=== PATIENT | female | born 1960 | race African-American/Black ===

== ENCOUNTER 2021-06-25 17:01 | Emergency (ER) | payer OTHER ==
[~2021-06-25] VITALS: Ht 162.6 cm; Wt 80.0 kg
[2021-06-25 17:22] VITALS: BP 140/69
[2021-06-25] MEDS ORDERED: LIDOCAINE 2% Multi-Dose 20 ML VIAL. IJ ONE (18:00)
[2021-06-25] MEDS ORDERED: DIPH,PERTUSS(ACELL),TET VAC/PF 0.5 ML SYRINGE. VAX IM ONE (18:00)
[2021-06-25] MEDS ORDERED: HYDROcodone/APAP 5/325MG 1 TAB TABLET PO ONE (18:00)
--- NOTE | 2021-06-25 18:14 | PHYS DOC ---
Past Medical History Past Surgical History: No Surgical History Smoking Status: Current Every Day Smoker Alcohol Use: None General Adult EDM: Chief Complaint: LACERATION/AVULSION HPI: HPI: Patient is a 61-year-old female presents emergency department via EMS reporting she was opening up a package with a steak knife when it slipped and she incidentally suffered a small laceration to her left pointer finger. Patient denies loss of consciousness, denies loss of sensation of lacerated finger, reports minimal blood loss as she immediately wrapped it in a bandage and called 911 for transport to the emergency department. Patient reports her last tetanus immunization was greater than 5 years ago. Reports a history of anxiety and depression, takes Abilify, gabapentin, fluoxetine, and Lamictal. Patient denies allergies to medications. Reports a 9 out of 10 pain to her fingertip. Denies other physical complaints or physical concerns. Review of Systems: Review of Systems: 14 body systems of review of systems have been reviewed. See HPI for pertinent positives and negative responses, otherwise all other systems are negative, nonpertinent or noncontributory. Constitutional: Negative except as outlined in HPI above. Skin: Negative except as outlined in HPI above. Eyes: Negative except as outlined in HPI above. HENT: Negative except as outlined in HPI above. Respiratory: Negative except as outlined in HPI above. Cardiovascular: Negative except as outlined in HPI above. GI: Negative except as outlined in HPI above. : Negative except as outlined in HPI above. Musculoskeletal: Negative except as outlined in HPI above. Integument: Negative except as outlined in HPI above. Neurologic: Negative except as outlined in HPI above. Endocrine: Negative except as outlined in HPI above. Lymphatic: Negative except as outlined in HPI above. Psychiatric: Negative except as outlined in HPI above. Heart Score: C/O Chest Pain: No Risk Factors: Risk Factors: DM, Current or recent (<one month) smoker, HTN, HLP, family history of CAD, obesity. Risk Scores: Score 0 - 3: 2.5% MACE over next 6 weeks - Discharge Home Score 4 - 6: 20.3% MACE over next 6 weeks - Admit for Clinical Observation Score 7 - 10: 72.7% MACE over next 6 weeks - Early Invasive Strategies Current Medications: Current Medications Medications (Trade) Dose Ordered Sig/Syed Start Time Stop Time Status Last Admin Dose Admin Acetaminophen/ Hydrocodone Bitart (Lortab 5/325) 1 tab 1X ONCE 06/25/21 18:00 06/25/21 18:01 DC 06/25/21 17:51 1 TAB Diphtheria/ Tetanus/Acell Pertussis (ADACEL TDap SYRINGE) 0.5 ml ONCE ONCE 06/25/21 18:00 06/25/21 18:01 DC 06/25/21 17:56 0.5 ML Lidocaine HCl (Lidocaine 2% 20ml Vial) 20 ml 1X ONCE 06/25/21 18:00 06/25/21 18:01 DC 06/25/21 17:50 20 ML Allergies: Allergies: Allergies Coded Allergies Type Severity Reaction Last Updated Verified No Known Drug Allergies 06/25/21 No Physical Exam: PE: Constitutional: Well developed, well nourished, no acute distress, non-toxic appearance. 61-year-old female in no apparent distress. HENT: Normocephalic, atraumatic. Eyes: Conjunctiva normal, no discharge. Neck: Normal range of motion, no stridor. Cardiovascular: No cyanosis appreciated, distal cap refill less than 2 seconds. Lungs & Thorax: Patient is in no respiratory distress, no audible adventitious lung sounds appreciated. Abdomen: Nontender, no abnormalities noted. Skin: Warm, dry, no erythema, no rash. See extremity note for focused skin examination for Back: No tenderness, no deformities. Extremities: No tenderness, no cyanosis, no clubbing, ROM intact, no edema. Except for left index finger, palmar skin surface distal phalanx has 4 cm laceration with adipose tissue exposed, full flexion extension of index finger joints, distal cap refill less than 2 seconds, no loss of sensation distal to laceration. Bleeding controlled with bandage. Neurologic: Alert and oriented X 3, normal motor function, normal sensory function, no focal deficits noted. Psychologic: Affect normal, judgement normal, mood normal. Current Patient Data: Vital Signs: Vital Signs Date Time Temp Pulse Resp B/P (MAP) Pulse Ox O2 Delivery O2 Flow Rate FiO2 06/25/21 17:22 97.2 75 18 140/69 (92) 97 Room Air 97.2 EKG: EKG: [] Radiology/Procedures: Radiology/Procedures: [] Course & Med Decision Making: Course & Med Decision Making Pertinent Labs and Imaging studies reviewed. (See chart for details) 51-year-old female, vital signs reviewed, presents to the emergency department concerning laceration of her left index finger. Patient denies homicidal or suicidal ideation, physical presentation is consistent with patient's explanation of events. See laceration repair note. Patient's immunization status brought up-to-date today in the emergency department with Adacel/Tdap. Discussed with patient home suture care, sutures out in 7 to 10 days at primary care, reviewed at length with patient signs and symptoms of infectious process, return to ER precautions and concerns, patient gave verbal understanding of and is amenable to ED discharge planning. Discussed with the patient all findings and diagnostic testing as well as the need to follow-up with their primary care provider for further evaluation and treatment or return to the ED if any new or worsening symptoms. Strict return precautions were also discussed at length, the patient voiced understanding and agreement with the discharge planning. The patient was nontoxic in appearance, in no apparent distress, and hemodynamically stable at the time of disposition. Dragon Disclaimer: Dragon Disclaimer: This electronic medical record was generated, in whole or in part, using a voice recognition dictation system. Laceration Repair Lac Repair Indication: Laceration left index finger Time: 1814 Confirmed: Patient, procedure, side, and site correct. Consent: Patient, has given verbal consent. Description/repair Procedure: The patient was placed in the appropriate position and anesthesia around the laceration was achieved with 6 cc 2% lidocaine without epinephrine digital block. The area was then cleansed with chlorhexidine scrub brush, irrigated with 500 cc normal saline. The laceration was explored for foreign bodies, there are no foreign bodies. The laceration was closed with 3 interrupted sutures using 5-0 nylon, the wound area was then dressed with bacitracin and Band-Aid by ED nursing staff. Complexity: Single layer. Post procedure exam: Circulation, motor, sensory examination intact, bleeding controlled. Total repaired wound length: 0.4 cm. Other Items: There were no other items The patient tolerated the procedure well. Complications: No complications. Performed by: Onel, Rex Javier, SHILA-C Supervision: Dr. Matthews was present for consult regarding the critical aspects of the procedure including closure and post procedure exam. Total time: 10 minutes. Departure Departure Impression: Primary Impression: Laceration of finger Qualified Codes: S61.211A - Laceration without foreign body of left index finger without damage to nail, initial encounter Disposition: HOME / SELF CARE / HOMELESS Condition: GOOD Referrals: NO PCP (PCP) [facility] Patient Instructions: Laceration Care, Adult Additional Instructions: You were seen today in the emergency department for a laceration repair of your left pointer finger. 3 sutures were placed that require removal in 7 to 10 days. As we discussed, please do not soak your hands in water for lengthy periods of time, you may get it wet during daily cleansing with mild soap and water, pat dry and apply antibiotic ointment to the laceration 3 times a day and cover with Band-Aid until sutures are removed in 7 to 10 days. You may follow- up with your primary care physician for suture removal. You may take [id number] Tylenol or Motrin for ongoing aches and pains. Return to the emergency department for worsening symptoms or other concerns. Thank you for visiting our Emergency Department. It was a pleasure taking care of you today in the emergency department and we appreciate you trusting us with your care. If any additional problems come up don't hesitate to return to visit us. Please follow up with your primary care provider so they can plan additional care if needed and know about the problem that you had. If symptoms worsen come back to the Emergency Department. Any concerning symptoms that start such as chest pain, shortness of air, weakness or numbness on one side of the body, running high fevers or any other concerning symptoms return to the ER. REX JAVIER APRN Jun 25, 2021 18:14
[2021-06-25] MEDS ORDERED: BACITRACIN TOPICAL OINT PACKET. TP ONE (19:00)
== END 2021-06-25 18:38 | disposition home or self-care (01) ==
LOC: ER 17:01
DX: S61.211A Laceration without foreign body of left index finger without damage to nail, initial encounter (principal); F17.200 Nicotine dependence, unspecified, uncomplicated; W26.0XXA Contact with knife, initial encounter; Y93.89 Activity, other specified; Y92.89 Other specified places as the place of occurrence of the external cause; Y99.8 Other external cause status
CPT/HCPCS: 12001; 90471; 90715; 99283

== ENCOUNTER 2021-07-10 18:59 | Emergency (ER) | payer OTHER | END 2021-07-11 01:58 | disposition left against medical advice (07) | LOC: ER 18:59 | DX: L08.89 Other specified local infections of the skin and subcutaneous tissue (principal); Z53.21 Procedure and treatment not carried out due to patient leaving prior to being seen by health care provider ==